=== PATIENT | male | born 1955 | race Caucasian/White ===

== ENCOUNTER 2022-08-28 15:30 | Emergency (ER) | payer MEDICARE, MEDICAID, SELFPAY ==
[2022-08-28 15:43] VITALS: BP 132/82; PULSE 99; RESP 18; TEMP 36.9; O2SAT 97; BMI 25.1
--- NOTE | 2022-08-28 15:46 | ED.GENADULT ---
HPI - General Adult General Chief complaint: Skin/Abscess/Foreign Body Stated complaint: dehydration,arron. leg cellulitis Related Data Previous Rx's Medication Instructions Recorded cephalexin 500 mg capsule 500 mg PO QID 7 days #28 caps 08/29/22 doxycycline hyclate 100 mg capsule 100 mg PO BID 7 days #14 caps 08/29/22 Allergies Allergy/AdvReac Type Severity Reaction Status Date / Time No Known Allergies Allergy Verified 08/28/22 15:49 PMFSH Social History Social History Smoked in Last 30 Days: No Use of substances other than those prescribed or required for medical reasons: No Advance Directives: No Advance Directives Information Provided: No Physical Exam ED Vital Signs: Vital Signs - 24 hr 08/28/22 22:03 Temperature 97.7 F Pulse Rate 81 Respiratory Rate 16 Blood Pressure 158/80 H Pulse Oximetry 97 Oxygen Delivery Method Room Air BMI result Body Mass Index 25.1 Course Course Course Narrative: RME: Patient is a 67-year-old male who presents to the emergency department for evaluation of cellulitis the bilateral lower extremities which he reports is recurrent, he is not currently on any antibiotics, he states the redness and swelling has been occurring for the past 2-3 days, prior cellulitis in November of 2021 by his report. Denies fevers or chills. Additionally he states about 2-3 weeks ago he was evaluated at [facility], he was given a course of oral antibiotics for urinary tract infection, he states that he did not complete this course of antibiotics. He does report having dysuria and urinary frequency. Plan: Labs, urinalysis Medical Decision Making Lab Data Result Diagrams: 08/28/22 17:10 08/28/22 17:10 Labs: Lab Results 08/28/22 08/28/22 08/28/22 Range/Units 15:59 17:10 17:10 WBC 10.5 (4.8-10.8) X10*3/uL RBC 4.98 (4.60-5.80) X10*6/uL Hgb 15.6 (14.0-18.0) g/dl Hct 46.8 (42.0-52.0) % MCV 94.0 (80.0-98.0) fL MCH 31.3 (27.0-33.0) pg MCHC 33.3 (31.0-36.0) g/dl RDW 15.6 (11.0-16.0) % Plt Count 283 (160-400) X10*3/uL MPV 10.1 (9.4-12.4) fL Immature Gran % (Auto) 0.6 H (0.0-0.4) % Neut % (Auto) 59.4 (45-73) % Lymph % (Auto) 25.1 (20-40) % [place] % (Auto) 13.7 H (2-11) % Eos % (Auto) 1.1 (0-4) % Baso % (Auto) 0.1 (0-2) % Lymph # (Auto) 2.6 (1.2-4.9) X10*3/uL [place] # (Auto) 1.4 H (0.1-1.2) X10*3/uL Eos # (Auto) 0.1 (0.0-0.4) X10*3/uL Baso # (Auto) 0.0 (0.0-0.2) X10*3/uL Abs Immat Gran (auto) 0.06 H (0.00-0.03) X10*3/uL Absolute Neuts (auto) 6.3 (2.0-8.3) x10*3/uL Absolute Nucleated RBC 0.000 (0.0-0.012) X10*3/uL Nucleated RBC % (auto) 0.0 (0.0-0.2) /100WBC Sodium 139 (135-145) mmol/L Potassium 4.2 (3.3-5.1) mmol/L Chloride 103 (96-108) mmol/L Carbon Dioxide 28 (22-29) mmol/L Anion Gap 12 (12-20) BUN 11 (9-16) mg/dL Creatinine 0.78 (0.5-1.4) mg/dL Estim Creat Clear Calc 92.2 Estimated GFR > 60 Random Glucose 90 (60-115) mg/dL Lactic Acid (0.5-2.0) mmol/L Calcium 9.1 (8.4-10.2) mg/dL Total Bilirubin 1.4 H (0.0-1.0) mg/dL AST 157 H (5-37) U/L ALT 195 H (0-40) U/L Alkaline Phosphatase 137 H (39-117) U/L Total Protein 7.6 (6.5-8.0) g/dL Albumin 3.7 (3.5-5.0) g/dL Urine Color Yellow Urine Appearance Cloudy Urine pH 6.5 (5.0-9.0) Ur Specific [place] 1.015 (1.005-1.025) Urine Protein 30 (1+) H (Neg-Trace) mg/dL Urine Glucose (UA) Negative (Negative) mg/dL Urine Ketones Negative (Negative) mg/dL Urine Blood Trace H (Negative) Urine Nitrite Negative (Negative) Ur Leukocyte Esterase Large (3+) H (Negative) Urine RBC 3-5 H (0-2) /HPF Urine WBC >50 H (0-5) /HPF Ur Squamous Epith Cells 0-2 (0-2) /HPF Urine Bacteria 4+ (None Seen) Hyaline Casts 0-2 (0-2) /LPF // Range/Units 17:10 WBC (4.8-10.8) X10*3/uL RBC (4.60-5.80) X10*6/uL Hgb (14.0-18.0) g/dl Hct (42.0-52.0) % MCV (80.0-98.0) fL MCH (27.0-33.0) pg MCHC (31.0-36.0) g/dl RDW (11.0-16.0) % Plt Count (160-400) X10*3/uL MPV (9.4-12.4) fL Immature Gran % (Auto) (0.0-0.4) % Neut % (Auto) (45-73) % Lymph % (Auto) (20-40) % [place] % (Auto) (2-11) % Eos % (Auto) (0-4) % Baso % (Auto) (0-2) % Lymph # (Auto) (1.2-4.9) X10*3/uL [place] # (Auto) (0.1-1.2) X10*3/uL Eos # (Auto) (0.0-0.4) X10*3/uL Baso # (Auto) (0.0-0.2) X10*3/uL Abs Immat Gran (auto) (0.00-0.03) X10*3/uL Absolute Neuts (auto) (2.0-8.3) x10*3/uL Absolute Nucleated RBC (0.0-0.012) X10*3/uL Nucleated RBC % (auto) (0.0-0.2) /100WBC Sodium (135-145) mmol/L Potassium (3.3-5.1) mmol/L Chloride (96-108) mmol/L Carbon Dioxide (22-29) mmol/L Anion Gap (12-20) BUN (9-16) mg/dL Creatinine (0.5-1.4) mg/dL Estim Creat Clear Calc Estimated GFR Random Glucose (60-115) mg/dL Lactic Acid 1.1 (0.5-2.0) mmol/L Calcium (8.4-10.2) mg/dL Total Bilirubin (0.0-1.0) mg/dL AST (5-37) U/L ALT (0-40) U/L Alkaline Phosphatase (39-117) U/L Total Protein (6.5-8.0) g/dL Albumin (3.5-5.0) g/dL Urine Color Urine Appearance Urine pH (5.0-9.0) Ur Specific [place] (1.005-1.025) Urine Protein (Neg-Trace) mg/dL Urine Glucose (UA) (Negative) mg/dL Urine Ketones (Negative) mg/dL Urine Blood (Negative) Urine Nitrite (Negative) Ur Leukocyte Esterase (Negative) Urine RBC (0-2) /HPF Urine WBC (0-5) /HPF Ur Squamous Epith Cells (0-2) /HPF Urine Bacteria (None Seen) Hyaline Casts (0-2) /LPF Discharge Plan Discharge Clinical Impression: Dysuria, Leg swelling Patient Disposition: Elopement Prescriptions: No Action cephalexin 500 mg capsule 500 mg PO QID 7 Days Qty: 28 0RF doxycycline hyclate 100 mg capsule 100 mg PO BID 7 Days Qty: 14 0RF Discharge Date/Time: 08/29/22 02:33
[2022-08-28 16:09] LABS: Appearance Urine Cloudy; Color Urine Yellow; Glucose Urine UA Negative (Negative); Leukocyte Esterase Urine Large (3+) (Negative); Nitrite Urine Negative (Negative); PH 6.5 (5.0-9.0); Specific Gravity - Urine 1.015 (1.005-1.025); UMIC TRIGGER UACC YES; Urine Blood Trace (Negative); Urine Ketones Negative (Negative); Urine Protein 30 (1+) mg/dL (Neg-Trace)
[2022-08-28 16:14] LABS: Bacteria Urine 4+ (None Seen); Hyaline Casts Urine 0-2 /LPF (0-2); Squamous Epithelial Cell Urine 0-2 /HPF (0-2); UACC Culture Trigger YES; WBC Urine >50 /HPF (0-5)
[2022-08-28 17:15] LABS: MANUAL DIFF FLAG NO
[2022-08-28 17:17] LABS: Basophils Percent Auto 0.1 % (0-2); Eosinophils Absolute Auto 0.1 X10*3/uL (0.0-0.4); Eosinophils Percent Auto 1.1 % (0-4); Hematocrit 46.8 % (42.0-52.0); Hemoglobin 15.6 g/dl (14.0-18.0); Imm Gran Abs Auto 0.06 X10*3/uL (0.00-0.03); Imm Gran Pct Auto 0.6 % (0.0-0.4); Lymphocytes Absolute Auto 2.6 X10*3/uL (1.2-4.9); Lymphocytes Percent Auto 25.1 % (20-40); Mean Corpuscular HGB Conc 33.3 g/dl (31.0-36.0); Mean Corpuscular Hemoglobin 31.3 pg (27.0-33.0); Mean Platelet Volume 10.1 fL (9.4-12.4); Monocytes Absolute Auto 1.4 X10*3/uL (0.1-1.2); Monocytes Percent Auto 13.7 % (2-11); Neutrophils Absolute Auto 6.3 x10*3/uL (2.0-8.3); Neutrophils Percent Auto 59.4 % (45-73); Platelet Count 283 X10*3/uL (160-400); Red Blood Count 4.98 X10*6/uL (4.60-5.80); Red Cell Distribution Width 15.6 % (11.0-16.0); White Blood Count 10.5 X10*3/uL (4.8-10.8)
[2022-08-28 17:27] LABS: Lactic Acid 1.1 mmol/L (0.5-2.0)
[2022-08-28 17:32] LABS: Alanine Aminotransferase 195 U/L (0-40); Albumin Level 3.7 g/dL (3.5-5.0); Alkaline Phosphatase 137 U/L (39-117); Anion Gap 12 (12-20); Aspartate Amino Transferase 157 U/L (5-37); Bilirubin Total 1.4 mg/dL (0.0-1.0); Blood Urea Nitrogen 11 mg/dL (9-16); Calcium 9.1 mg/dL (8.4-10.2); Carbon Dioxide 28 mmol/L (22-29); Chloride 103 mmol/L (96-108); Creatinine Clr Calc Pharmacy 92.2; Estimated Glomerular Filt Rate > 60; Glucose Random 90 mg/dL (60-115); Potassium 4.2 mmol/L (3.3-5.1); Sodium 139 mmol/L (135-145); Total Protein 7.6 g/dL (6.5-8.0)
[2022-08-28 22:03] VITALS: BP 158/80; PULSE 81; RESP 16; TEMP 36.5; O2SAT 97
== END 2022-08-29 02:33 | disposition left against medical advice (07) ==
PROVIDERS: Nurse Practitioner Family; Emergency Provider Emergency Medicine
DX: R30.0 Dysuria (principal); R60.0 Localized edema; Z79.899 Other long term (current) drug therapy
CPT/HCPCS: 36415; 80053; 81001; 83605; 85025; 87040; 87086; 87088; 87186; 99281; 99283

== ENCOUNTER 2022-08-29 07:20 | Emergency (ER) | payer MEDICARE, MEDICAID, SELFPAY ==
--- NOTE | ~2022-08-29 | US_ITS ---
EXAMINATION: US VENOUS ULTRASOUND WITH DOPPLER LOWER EXTREMITY, BILATERAL CLINICAL INFORMATION: Bilateral leg swelling and redness COMPARISON: None TECHNIQUE: Ultrasound of the deep veins is performed from the hip to the calf with compression sonography and color and pulse Doppler assessment. Spectral analysis with color-flow imaging is performed. FINDINGS: RIGHT: There is normal venous compression and respiratory variation and augmented flow. The visualized common femoral vein, superficial femoral vein, profunda femoral vein, popliteal vein, and the trifurcation region shows no evidence of deep venous thrombosis. There is no significant popliteal fossa cyst. LEFT: There is normal venous compression and respiratory variation and augmented flow. The visualized common femoral vein, superficial femoral vein, profunda femoral vein, popliteal vein, and the trifurcation region shows no evidence of deep venous thrombosis. There is no significant popliteal fossa cyst. If the patient's symptoms persist, followup ultrasound in 5 days 7 days might be of value to exclude proximal propagation from a non-visualized calf vein. US/US venous duplex LE BI IMPRESSION: No DVT demonstrated in the right and left lower extremity.
--- NOTE | ~2022-08-29 | XR_ITS ---
EXAMINATION: 1. RADIOGRAPHS RIGHT TIBIA/FIBULA 2. RADIOGRAPHS LEFT TIBIA/FIBULA CLINICAL INFORMATION: Bilateral leg swelling. Question osteomyelitis. COMPARISON: None TECHNIQUE: 2 views of each tibia/fibula were obtained FINDINGS: Right tibia/fibula: No fracture right tibia or fibula. Bony cortex is well-maintained throughout both bones. There is no focal soft tissue swelling of the right calf. Mild diffuse subcutaneous edema. No radiopaque foreign body. Vascular calcifications noted. Left tibia/fibula: No fracture of the left tibia or fibula. Bony cortex of the tibia and fibula is well-maintained. There is diffuse subcutaneous edema of the left calf without swelling. No radiopaque foreign body. Vascular calcifications noted. XR/XR tibia fibula LT 2V IMPRESSION: 1. Diffuse subcutaneous edema of the left both calves without focal swelling. 2. No fracture of either tibia or fibula. 3. No radiographic evidence to suggest osteomyelitis.
--- NOTE | ~2022-08-29 | XR_ITS ---
EXAMINATION: 1. RADIOGRAPHS RIGHT TIBIA/FIBULA 2. RADIOGRAPHS LEFT TIBIA/FIBULA CLINICAL INFORMATION: Bilateral leg swelling. Question osteomyelitis. COMPARISON: None TECHNIQUE: 2 views of each tibia/fibula were obtained FINDINGS: Right tibia/fibula: No fracture right tibia or fibula. Bony cortex is well-maintained throughout both bones. There is no focal soft tissue swelling of the right calf. Mild diffuse subcutaneous edema. No radiopaque foreign body. Vascular calcifications noted. Left tibia/fibula: No fracture of the left tibia or fibula. Bony cortex of the tibia and fibula is well-maintained. There is diffuse subcutaneous edema of the left calf without swelling. No radiopaque foreign body. Vascular calcifications noted. XR/XR tibia fibula RT 2V IMPRESSION: 1. Diffuse subcutaneous edema of the left both calves without focal swelling. 2. No fracture of either tibia or fibula. 3. No radiographic evidence to suggest osteomyelitis.
[2022-08-29 07:27] VITALS: BP 134/82; PULSE 89; RESP 18; TEMP 37.4; O2SAT 96; BMI 26.5
[2022-08-29 07:51] VITALS: BP 134/82; PULSE 82; RESP 16; TEMP 36.6; O2SAT 95
[2022-08-29 09:17] LABS: MANUAL DIFF FLAG NO
[2022-08-29 09:19] LABS: Basophils Percent Auto 0.2 % (0-2); Eosinophils Absolute Auto 0.2 X10*3/uL (0.0-0.4); Eosinophils Percent Auto 1.8 % (0-4); Hematocrit 44.2 % (42.0-52.0); Hemoglobin 14.7 g/dl (14.0-18.0); Imm Gran Abs Auto 0.03 X10*3/uL (0.00-0.03); Imm Gran Pct Auto 0.3 % (0.0-0.4); Lymphocytes Absolute Auto 2.6 X10*3/uL (1.2-4.9); Lymphocytes Percent Auto 29.7 % (20-40); Mean Corpuscular HGB Conc 33.3 g/dl (31.0-36.0); Mean Corpuscular Hemoglobin 31.3 pg (27.0-33.0); Mean Corpuscular Volume 94.2 fL (80.0-98.0); Monocytes Absolute Auto 1.2 X10*3/uL (0.1-1.2); Monocytes Percent Auto 14.2 % (2-11); Neutrophils Absolute Auto 4.7 x10*3/uL (2.0-8.3); Neutrophils Percent Auto 53.8 % (45-73); Platelet Count 252 X10*3/uL (160-400); Red Blood Count 4.69 X10*6/uL (4.60-5.80); Red Cell Distribution Width 15.5 % (11.0-16.0); White Blood Count 8.7 X10*3/uL (4.8-10.8)
[2022-08-29 09:42] LABS: Alanine Aminotransferase 170 U/L (0-40); Albumin Level 3.2 g/dL (3.5-5.0); Alkaline Phosphatase 97 U/L (39-117); Anion Gap 12 (12-20); Aspartate Amino Transferase 153 U/L (5-37); Blood Urea Nitrogen 12 mg/dL (9-16); C Reactive Protein 2.75 mg/dL (< or = 0.50); Calcium 8.5 mg/dL (8.4-10.2); Carbon Dioxide 25 mmol/L (22-29); Chloride 106 mmol/L (96-108); Creatinine Clr Calc Pharmacy 99.9; Estimated Glomerular Filt Rate > 60; Glucose Random 97 mg/dL (60-115); Potassium 4.7 mmol/L (3.3-5.1); Sodium 138 mmol/L (135-145); Total Protein 6.7 g/dL (6.5-8.0)
[2022-08-29 09:59] LABS: Erythrocyte Sedimentation Rate 17 MM/HR (0-15)
[2022-08-29 10:21] VITALS: BP 126/64; PULSE 68; RESP 16; TEMP 36.7; O2SAT 97
[2022-08-29 11:29] LABS: Bilirubin Total 1.6 mg/dL (0.0-1.0)
[2022-08-29 12:12] VITALS: BP 121/61; PULSE 63; RESP 16; O2SAT 95
--- NOTE | 2022-08-29 13:05 | ED.GENADULT ---
HPI - General Adult General Chief complaint: Skin/Abscess/Foreign Body Stated complaint: abnormal labs cellulitis Time Seen by Provider: 08/29/22 08:27 Source: patient Mode of arrival: ambulatory Limitations: no limitations History of Present Illness HPI narrative: 67-year-old male presents to ED for bilateral leg redness for the past 3 days. patient states history of cellulitis to these extremities in the past. Patient denies any nausea, vomitting, chills, fever, chest pain, or shortness of breath. patient is homeless. Patient states history of acute on chronic cellulitis and venous stasis Related Data Previous Rx's Medication Instructions Recorded cephalexin 500 mg capsule 500 mg PO QID 7 days #28 caps 08/29/22 doxycycline hyclate 100 mg capsule 100 mg PO BID 7 days #14 caps 08/29/22 Allergies Allergy/AdvReac Type Severity Reaction Status Date / Time No Known Allergies Allergy Verified 08/28/22 15:49 Review of Systems Review of Systems: bilatral lower extremities swelling PMFSH Social History Social History Smoked in Last 30 Days: No Use of substances other than those prescribed or required for medical reasons: No Advance Directives: No Advance Directives Information Provided: No Physical Exam ED Vital Signs: Vital Signs - 24 hr 08/29/22 07:27 08/29/22 07:51 08/29/22 10:21 Temperature 99.3 F 97.8 F 98.0 F Pulse Rate 89 82 68 Respiratory Rate 18 16 16 Blood Pressure 134/82 134/82 126/64 Pulse Oximetry 96 95 97 Oxygen Delivery Method Room Air Room Air Room Air 08/29/22 12:12 08/29/22 14:40 Temperature Pulse Rate 63 88 Respiratory Rate 16 16 Blood Pressure 121/61 122/75 Pulse Oximetry 95 96 Oxygen Delivery Method Room Air Room Air BMI result Body Mass Index 26.5 Const General: cooperative, healthy appearing, comfortable, no acute distress, well developed, alert, awake and Physically active Orientation/consciousness: oriented to person, oriented to place, oriented to time and patient oriented x3 HENMT Head: Yes normal to inspection, Yes No palpable skull fracture present, Yes normocephalic, Yes atraumatic and No abrasion Eyes General: appearance normal, both eyes and all related structures Neck Neck: Yes normal visual inspection, Yes full ROM, Yes no lymphadenopathy, Yes no meningeal signs, Yes trachea midline, No anterior neck swelling and No tender Chest Chest palpation & inspection: normal inspection of the chest and normal palpation of entire chest wall Resp Effort & Inspection: normal respiratory effort and able to speak in complete sentences Auscultation: clear to auscultation bilaterally Cardio Jugular venous distension: no JVD Heart sounds: S1 normal heart sound present and S2 normal heart sound present GI Inspection: Yes normal to inspection and No abdominal wall ecchymosis Palpation (GI): Soft to palpation, not firm, nontender, no guarding and not rigid General: No CVA tenderness and Yes no CVA tenderness Back/Spine/Pelvis Back: no CVA tenderness, No CVA tenderness and No back tenderness Skin General skin exam: no rashes or lesions noted and elasticity normal Neuro General: oriented to person, oriented to place, oriented to time, patient oriented x3, gait normal, tone normal, moves all extremities, Normal light touch and pain sensation, no meningeal signs, no focal motor deficits and CN's II-XI intact bilaterally Extrem Other: Positive bilateral lower extremity swelling, redness, warmth Psych Appearance: grossly normal, well kempt and not disheveled Course Course Course Narrative: Labs drawn lower extremity x-rays ordered. ESR CRP ordered. Bilateral lower extremity ultrasound ordered. Reevaluation(s) Reevaluation #1: Negative for elevated white blood cell count. Negative lactic acid. X-rays negative for osteomylitis. ESR CRP elevated. Ultrasound negative for DVT. Case was discussed with hospitalist for possible admission. patient himself refused to be admitted. 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 Time: 15:20 Medical Decision Making Medical Decision Making MDM Narrative: 67-year-old male history of venous stasis, acute chronic cellulitis and homeless with bilateral red and warm legs. Workup does not indicate sepsis. X-ray negative for osteomyelitis. Ultrasound negative for DVT. Admission was discussed with patient and hospitalist. Patient does not want to be admitted will prefer p.o. trial antibiotics. Lab Data Result Diagrams: 08/29/22 09:10 08/29/22 09:10 Labs: Lab Results 08/29/22 08/29/22 08/29/22 Range/Units 09:10 09:10 09:10 WBC 8.7 (4.8-10.8) X10*3/uL RBC 4.69 (4.60-5.80) X10*6/uL Hgb 14.7 (14.0-18.0) g/dl Hct 44.2 (42.0-52.0) % MCV 94.2 (80.0-98.0) fL MCH 31.3 (27.0-33.0) pg MCHC 33.3 (31.0-36.0) g/dl RDW 15.5 (11.0-16.0) % Plt Count 252 (160-400) X10*3/uL MPV 10.0 (9.4-12.4) fL Immature Gran % (Auto) 0.3 (0.0-0.4) % Neut % (Auto) 53.8 (45-73) % Lymph % (Auto) 29.7 (20-40) % [place] % (Auto) 14.2 H (2-11) % Eos % (Auto) 1.8 (0-4) % Baso % (Auto) 0.2 (0-2) % Lymph # (Auto) 2.6 (1.2-4.9) X10*3/uL [place] # (Auto) 1.2 (0.1-1.2) X10*3/uL Eos # (Auto) 0.2 (0.0-0.4) X10*3/uL Baso # (Auto) 0.0 (0.0-0.2) X10*3/uL Abs Immat Gran (auto) 0.03 (0.00-0.03) X10*3/uL Absolute Neuts (auto) 4.7 (2.0-8.3) x10*3/uL Absolute Nucleated RBC 0.000 (0.0-0.012) X10*3/uL Nucleated RBC % (auto) 0.0 (0.0-0.2) /100WBC ESR 17 H (0-15) MM/HR Sodium 138 (135-145) mmol/L Potassium 4.7 (3.3-5.1) mmol/L Chloride 106 (96-108) mmol/L Carbon Dioxide 25 (22-29) mmol/L Anion Gap 12 (12-20) BUN 12 (9-16) mg/dL Creatinine 0.72 (0.5-1.4) mg/dL Estim Creat Clear Calc 99.9 Estimated GFR > 60 Random Glucose 97 (60-115) mg/dL Lactic Acid (0.5-2.0) mmol/L Calcium 8.5 D (8.4-10.2) mg/dL Total Bilirubin 1.6 H (0.0-1.0) mg/dL AST 153 H (5-37) U/L ALT 170 H (0-40) U/L Alkaline Phosphatase 97 (39-117) U/L C-Reactive Protein 2.75 H (< or = 0.50) mg/dL Total Protein 6.7 (6.5-8.0) g/dL Albumin 3.2 L (3.5-5.0) g/dL 08/29/22 Range/Units 09:10 WBC (4.8-10.8) X10*3/uL RBC (4.60-5.80) X10*6/uL Hgb (14.0-18.0) g/dl Hct (42.0-52.0) % MCV (80.0-98.0) fL MCH (27.0-33.0) pg MCHC (31.0-36.0) g/dl RDW (11.0-16.0) % Plt Count (160-400) X10*3/uL MPV (9.4-12.4) fL Immature Gran % (Auto) (0.0-0.4) % Neut % (Auto) (45-73) % Lymph % (Auto) (20-40) % [place] % (Auto) (2-11) % Eos % (Auto) (0-4) % Baso % (Auto) (0-2) % Lymph # (Auto) (1.2-4.9) X10*3/uL [place] # (Auto) (0.1-1.2) X10*3/uL Eos # (Auto) (0.0-0.4) X10*3/uL Baso # (Auto) (0.0-0.2) X10*3/uL Abs Immat Gran (auto) (0.00-0.03) X10*3/uL Absolute Neuts (auto) (2.0-8.3) x10*3/uL Absolute Nucleated RBC (0.0-0.012) X10*3/uL Nucleated RBC % (auto) (0.0-0.2) /100WBC ESR (0-15) MM/HR Sodium (135-145) mmol/L Potassium (3.3-5.1) mmol/L Chloride (96-108) mmol/L Carbon Dioxide (22-29) mmol/L Anion Gap (12-20) BUN (9-16) mg/dL Creatinine (0.5-1.4) mg/dL Estim Creat Clear Calc Estimated GFR Random Glucose (60-115) mg/dL Lactic Acid 1.0 (0.5-2.0) mmol/L Calcium (8.4-10.2) mg/dL Total Bilirubin (0.0-1.0) mg/dL AST (5-37) U/L ALT (0-40) U/L Alkaline Phosphatase (39-117) U/L C-Reactive Protein (< or = 0.50) mg/dL Total Protein (6.5-8.0) g/dL Albumin (3.5-5.0) g/dL Discharge Plan Discharge Clinical Impression: Cellulitis, Venous stasis Patient Disposition: Home, Self-Care Instructions: Cellulitis (ED), Venous Insufficiency (DC) Additional Instructions: Return to the ED immediately for any chest pain, shortness of breath, worsening redness, worsening swelling, fever, chills, weakness, or any other concerning symptoms. Please follow-up with the primary care provider Prescriptions: New cephalexin 500 mg capsule 500 mg PO QID 7 Days Qty: 28 0RF doxycycline hyclate 100 mg capsule 100 mg PO BID 7 Days Qty: 14 0RF Interventions: ED Discharge Assessment Last Done: 08/29/22 15:34 Discharge Date/Time: 08/29/22 16:18 Print Language: Swiss
[2022-08-29 14:40] VITALS: BP 122/75; PULSE 88; RESP 16; O2SAT 96
== END 2022-08-29 16:18 | disposition home or self-care (01) ==
PROVIDERS: Physician Assistant; Emergency Provider Emergency Medicine Emergency Medical Services
DX: L03.116 Cellulitis of left lower limb (principal); I83.12 Varicose veins of left lower extremity with inflammation; L03.115 Cellulitis of right lower limb; I83.11 Varicose veins of right lower extremity with inflammation; N39.0 Urinary tract infection, site not specified; B95.2 Enterococcus as the cause of diseases classified elsewhere
CPT/HCPCS: 36415; 73590; 80053; 83605; 85025; 85652; 86140; 87040; 93970; 99284